=== PATIENT | male | born 1980 | race Caucasian/White ===

== ENCOUNTER 2016-08-24 09:40 | Emergency (ER) | payer MEDICAID ==
--- NOTE | 2016-08-24 10:14 | ED Physician Chart ---
Chief Complaint/HPI - Patient Information Date Seen:: 08/24/16 Time Seen:: 09:57 Chief Complaint:: sore throat History of Present Illness:: THIS IS A 36 YO MALE WHO IS CONCERNED ABOUT HAVING AN INFECTION OF HIS THROAT AND WANTS SOME ANTIBIOTICS. HE STATES THAT HE RECENTLY HAD LOTS OF BLOOD WORK DONE AND HAS A HISTORY OF AIDS. HE STATES THAT HIS THROAT HAS BEEN GETTING SORE OVER THE LAST FOUR DAYS. HE DENIES HAVING FEVER AND CHILLS. Historian:: Patient Review:: Nurse's Note Reviewed Review of Systems - Review of Systems General/Constitutional: No fever, No chills, No weight loss, No weakness, No diaphoresis, No edema, No loss of appetite Skin: No skin lesions, No rash, No bruising Head: No headache, No light-headedness Eyes: No loss of vision, No pain, No diplopia ENT: No earache, No nasal drainage, Sore throat, No tinnitus Neck: No neck pain, No swelling, No thyromegaly, No stiffness, No mass noted Cardio Vascular: No chest pain, No palpitations, No PND, No orthopnea, No edema Pulmonary: No SOB, No cough, No sputum, No wheezing GI: No nausea, No vomiting, No diarrhea, No pain, No melena, No hematochezia, No constipation, No hematemesis G/U: No dysuria, No frequency, No hematuria Musculoskeletal: No bone or joint pain, No back pain, No muscle pain Endocrine: No polyuria, No polydipsia Psychiatric: No prior psych history, No depression, No anxiety, No suicidal ideation Hematopoietic: No bruising, No lymphadenopathy Allergic/Immuno: No urticaria, No angioedema Neurological: No syncope, No focal symptoms, No weakness, No paresthesia, No headache, No seizure, No dizziness, No confusion, No vertigo Past Medical History - Past Medical History Obtainable: Yes Past Medical History: Other (HIV POSITIVE) Family History: None Social History: Non Smoker, No Alcohol, No Drug Use Surgical History: None Psychiatricy History: None Medication: Reviewed Physical Exam - Physical Examination General/Constitutional: Awake, Well-developed, well-nourished, Alert, No distress, GCS 15, Non-toxic appearing, Ambulatory Head: Atraumatic Eyes: Lids, conjuctiva normal, PERRL, EOMI Skin: Nl inspection, No rash, No skin lesions, No ecchymosis, Well hydrated, No lymphadenopathy ENMT: External ears, nose nl, Nasal exam nl, Lips, teeth, gums nl, Oropharynx nl (RED AND SLIGHTLY SWOLLEN.) Neck: Nontender, Full ROM w/o pain, No JVD, No nuchal rigidity, No bruit, No mass, No stridor Respiratory: Nl effort/Exclusion, Clear to Auscultation, No Wheeze/Rhonchi/Rales Cardio Vascular: RRR, No murmur, gallop, rubs, NL S1 S2 GI: No tenderness/rebounding/guarding, No organomegaly, No hernia, Normal BS's, Nondistended, No mass/bruits, No McBurney tenderness : No CVA tenderness Extremities: No tenderness or effusion, Full ROM, normal strength in all extremities, No edema, Normal digits & nails Neuro/Psych: Alert/oriented, DTR's symmetric, Normal sensory exam, Normal motor strength, Judgement/insight normal, Mood normal, Normal gait, No focal deficits Misc: normal gait, Normal back, No paraspinal tenderness ED Septic Shock - . Is Septic Shock (SBP<90, OR Lactate>4 mmol\L) present?: No Reassessment (Disposition) - Reassessment Reassessment Condition:: Unchanged - Diagnosis Diagnosis:: ACUTE PHARYNGITIS - Aftercare/Follow up Instructions Aftercare/Follow-Up Instructions:: Counseled pt regarding lab results/diagnosis & need follow up, Refer to Discharge Instructions, Counseled pt & family regarding lab results/diagnosis & need follow up - Patient Disposition Discharge/Transfer:: Home Condition at Disposition:: Unchanged ED Discharge Plan - Patient Disposition Admit/Discharge/Transfer: PT DISCHARGED HOME Condition at Disposition: Unchanged
== END 2016-08-24 10:14 | disposition home or self-care (01) ==
LOC: ER 09:40
DX: J02.9 Acute pharyngitis, unspecified (principal); Z88.0 Allergy status to penicillin; Z88.2 Allergy status to sulfonamides; Z88.1 Allergy status to other antibiotic agents
CPT/HCPCS: Z7502

== ENCOUNTER 2016-10-20 16:03 | Emergency (ER) | payer MEDICAID ==
[2016-10-20 16:19] VITALS: BP 119/62
--- NOTE | 2016-10-20 17:08 | ED Physician Chart ---
Chief Complaint/HPI - Patient Information Date Seen:: 10/20/16 Time Seen:: 16:35 Chief Complaint:: IRRITATION OF LT UPPER EYE LID X 1 WEEK. History of Present Illness:: This 36-year-old male with AIDS presents with a one-week history of irritation and swelling of his left upper eyelid. There is mild irritation but no specific pain. No decrease in vision. He has noted hyperemia of the conjunctiva in the left eye as well. No recent fever or chills. Allergies:: Allergies Allergy/AdvReac Type Severity Reaction Status Date / Time erythromycin base Allergy Verified 08/24/16 10:00 Penicillins Allergy Verified 08/24/16 10:00 sulfamethoxazole Allergy Verified 08/24/16 10:00 [From Bactrim] trimethoprim [From Bactrim] Allergy Verified 08/24/16 10:00 Vitals:: Vital Signs - 8 hr 10/20/16 10/20/16 10/20/16 16:19 16:20 17:00 Temp 99.4 F 99.0 F HR 98 95 RR 16 16 BP 119/62 123/62 124/76 O2 Sat % 98 97 Review of Systems - Review of Systems General/Constitutional: No fever, No chills, No weakness, No diaphoresis, No loss of appetite Skin: No skin lesions, No rash Head: No headache, No light-headedness Eyes: No loss of vision, No diplopia, Other (Increased hearing of the left eye.) ENT: No nasal drainage, No sore throat, No tinnitus Neck: Neck pain, No thyromegaly, No stiffness, No mass noted Cardio Vascular: No chest pain, No orthopnea Pulmonary: No SOB, No cough, No sputum GI: No nausea, No vomiting, No diarrhea, No pain G/U: No dysuria, No hematuria Musculoskeletal: No bone or joint pain, No back pain Endocrine: No polyuria, No polydipsia Psychiatric: No prior psych history Past Medical History - Past Medical History Past Medical History: Other (AIDS) Social History: Non Smoker, No Drug Use Surgical History: None Family Medical History - Family Member Mother History Unknown: Yes Physical Exam - Physical Examination General/Constitutional: Well-developed, well-nourished, Alert, GCS 15, Non- toxic appearing, Ambulatory Head: Atraumatic (There is swelling of the Lateral left upper eyelid. on a version of the left upper lid there was Abdullahi erythema with no pointing. The patient had mild conjunctival hyperemia of both eyes. Examination of the cornea was negative for any ulcerations or abrasions.) Skin: No rash, No ecchymosis, Well hydrated ENMT: External ears, nose nl, Nasal exam nl, Lips, teeth, gums nl, Oropharynx nl , Tonsils nl Neck: Nontender, No JVD, No nuchal rigidity, No mass Respiratory: Nl effort/Exclusion, Clear to Auscultation, No Wheeze/Rhonchi/Rales Cardio Vascular: RRR, No murmur, gallop, rubs ( Adequate pulses in all four extremities.) Other GI comments:: The abdomen was flat and nondistended. There was no tenderness in any quadrant. No masses were noted. : No CVA tenderness, No discharge Extremities: No tenderness or effusion, Full ROM, normal strength in all extremities, No edema Neuro/Psych: Alert/oriented, Normal sensory exam, Normal motor strength, Judgement/insight normal, Mood normal, Normal gait, No focal deficits Misc: Normal back, No paraspinal tenderness Labs/Radiology/EKG Results - Lab Results Results: No radiographic or laboratory studies indicated. Assessment - Assessment General Assessment: CASE SUMMARY: this 36-year-old male presents with a one-week history of redness and swelling of his left upper eyelid. He reports mild irritation of both eyes with no change in visual acuity. Patient has had no similar symptoms in the past. On physical examination the patient had a chalazion of the left upper lid. He was advised to treated with heat complexes three or four times a day for the next week. He was also given a prescription for Blessed 10 to be used 3 to 4 times a day in addition to the warm or hot compresses. Patient has a past history of AIDS and the balance of the physical examination was unremarkable. Discharged in stable condition. MDM LT EYE REDNESS: NOT Acute Glaucoma based on history and exam. NOT Corneal abrasion or ulceration based on physical examination. Also the patient had no FB sensation in his left eye. NOT Corneal foreign body based on examination. ED Septic Shock - . Is Septic Shock (SBP<90, OR Lactate>4 mmol\L) present?: No - <6hrs of presentation: Vital Signs: Vital Signs - 8 hr 10/20/16 10/20/16 10/20/16 16:19 16:20 17:00 Temp 99.4 F 99.0 F HR 98 95 RR 16 16 BP 119/62 123/62 124/76 O2 Sat % 98 97 Reassessment (Disposition) - Reassessment Reassessment Condition:: Unchanged - Diagnosis Diagnosis:: CHALAZION OF THE LT UPPER EYELID. AIDS RX FOR BLEPH-10 TO BE USED Q 4-6 HRS FOR ONE WEEK. ALSO USE WARM OR HOT WASH CLOTH TO THE LEFT EYE 3 TO 4 TIMES PER DAY FOR 7 TO 10 DAYS. RETURN TO THE ER IF YOUR SYMPTOMS WORSEN IMMEDIATELY OR HAVEN'T RESOLVED IN 10 DAYS. - Aftercare/Follow up Instructions Aftercare/Follow-Up Instructions:: Refer to Discharge Instructions - Patient Disposition Discharge/Transfer:: Home Condition at Disposition:: Stable ED Discharge Plan - Patient Disposition Admit/Discharge/Transfer: PT DISCHARGED HOME Condition at Disposition: Stable Prescriptions: Sulfacetamide Sodium [Bleph-10] 5 ml OP Q4H #0 drops Instructions: Chalazion Accepting Physician: Chuck Heard [Other] - 1-3 Days
== END 2016-10-20 17:05 | disposition home or self-care (01) ==
LOC: ER 16:03
DX: H00.14 Chalazion left upper eyelid (principal); Z88.1 Allergy status to other antibiotic agents; Z88.0 Allergy status to penicillin; Z88.2 Allergy status to sulfonamides
CPT/HCPCS: Z7502